=== PATIENT | female | born 1940 | race Caucasian/White ===

== ENCOUNTER 2016-05-15 16:32 | Emergency (ER) | payer OTHER ==
[~2016-05-15 16:32] MED LIST: ASCO10003 PO; ASPI81TA28 PO; DEXL60CA4 PO; GABA1CAP4 PO; LATA0.009 OPR; LDDP5 TD; LEVO100T7 PO; LISI-461 PO; PLV75 PO; SENN15TA PO; VENL37.593 PO; VLTG EXT; ZCR40 PO; ZINC1TAB PO; ZLF/50 PO
[2016-05-15 16:47] VITALS: TEMP 37; Ht 157.5 cm
[2016-05-15] MEDS ORDERED: MoRPHine SULFATE 2 MG/ML CARP IM STA (17:05)
--- NOTE | 2016-05-15 17:57 | DIAGNOSTIC IMAGING REPORT ---
RIGHT KNEE 3 VIEWS CLINICAL HISTORY: right knee pain Right pain COMPARISON: None. DISCUSSION: Generalized moderate degenerative change of all major joint compartments. Chondrocalcinosis. No significant joint effusion. Mild osteophytic reaction throughout. There is no evidence for soft tissue swelling. IMPRESSION: Moderate degenerative change all major joint compartments. Chondrocalcinosis. No acute bony abnormality. Electronically signed by: Cleveland Moseley M.D. 05/15/2016 5:56 PM Dictated Date/Time: 05/15/2016 5:55 PM
[2016-05-15] MEDS ORDERED: LATA0.009 OP (18:08)
[2016-05-15] MEDS ORDERED: CHOL500021 PO (18:08)
[2016-05-15] MEDS ORDERED: SYN50 PO (18:08)
[2016-05-15] MEDS ORDERED: MoRPHine SULFATE 4 MG/ML 1 ML CARP\\VIAL IM STA (18:23)
[2016-05-15] MEDS ORDERED: ONDA4TAB10 SL (18:26)
--- NOTE | 2016-05-15 18:27 | EMERGENCY ROOM VISIT NOTE ---
ED Visit Note First contact with patient: 16:56 CHIEF COMPLAINT: knee pain HISTORY OF PRESENT ILLNESS: This 75-year-old female patient presents to the emergency department in the right complaining of pain in the right knee. The patient reports that approximately 2 weeks ago, she kneeled on a hard surface when she was cleaning and developed knee pain afterward. She states that something similar happened a few years ago and she had relief with an injection into the knee. The patient reports that she has seen her orthopedic provider and had an injection with no improvement. She reports the pain has been gradually worsening. She was prescribed Mcdonough for the pain but states she has not been able to take it due to nausea. She does admit that she took the Mcdonough on an empty stomach. She has also been using ice and taking Tylenol for the pain without relief. She reports difficulty standing on the knee and does not use a walker due to carpal tunnel in the wrists. She states that she was seen by orthopedics today and was given a prescription for tramadol, which she has not yet filled. She denies any numbness, weakness, fevers or warmth. REVIEW OF SYSTEMS: A 6 system review of systems was completed with positives and pertinent negatives listed in the HPI. ALLERGIES: Prednisone MEDICATIONS: See med list PMH: Hypertension, hyperlipidemia, arthritis, carpal tunnel SOCIAL HISTORY: The patient lives locally with family. PHYSICAL EXAM: Vital Signs: Reviewed Nurse's notes, vital signs stable. GENERAL : This is a 75-year-old female, no acute distress, but appears in pain, well- developed, well-nourished. MENTAL STATUS: Alert, oriented to person place and time, and cooperative. MUSCULOSKELETAL: The right knee is not swollen. There is no ecchymosis. There is no joint effusion present. The patient is tender over the medial aspect of the knee, just below the patella. There is no joint line tenderness. The patella does not subluxate. Range of motion is full, but painful. Ligamentous examination is limited due to patient discomfort. The foot and toes are warm and well-perfused. Dorsalis pedis pulse 2+. Sensation to pain and light touch is intact. Capillary refill less than 2 seconds. RADIOGRAPHIC FINDINGS: RIGHT KNEE 3 VIEWS CLINICAL HISTORY: right knee pain Right pain COMPARISON: None. DISCUSSION: Generalized moderate degenerative change of all major joint compartments. Chondrocalcinosis. No significant joint effusion. Mild osteophytic reaction throughout. There is no evidence for soft tissue swelling. IMPRESSION: Moderate degenerative change all major joint compartments. Chondrocalcinosis. No acute bony abnormality. EMERGENCY DEPARTMENT COURSE: I examined the patient. X-rays of the right knee were reviewed by myself and read by radiology and reveal fractures. The patient already has an established orthopedic provider. She has seen them 2 for this complaint. I did offer the patient a prescription for Zofran to take with her pain medication. I did recommend the patient have close follow-up with orthopedics regarding this problem. Conservative measures were discussed with the patient. She will return for any worsening symptoms. She verbalized understanding of my assessment and treatment plan. The patient was discharged home in good condition. The patient was independently evaluated by Dr. Alaniz, ED attending physician , who agreed with my assessment and treatment plan. DIAGNOSIS: Right knee pain Problem List Medical Problems: (1) GERD (gastroesophageal reflux disease) Status: Chronic (2) Hypertension Status: Chronic (3) Hypothyroidism Status: Chronic (4) TIA (transient ischemic attack) Status: Resolved Surgical Problems: (1) Status post cholecystectomy Status: Resolved (2) Status post hysterectomy Status: Resolved (3) Status post lumbar surgery Status: Resolved (4) Status post total knee replacement Status: Resolved Current/Historical Medications Scheduled Ascorbic Acid (Vitamin C), 1,000 MG PO QAM Aspirin (Aspirin Ec), 81 MG PO HS Cholecalciferol (Vitamin D3), 5,000 UNIT PO QAM Clopidogrel Bisulfate (Clopidogrel), 75 MG PO QAM Dexlansoprazole (Dexilant), 60 MG PO QAM Gabapentin (Gabapentin), 300 MG PO BID Latanoprost (Xalatan 0.005% Oph Kitty), 1 DROPS OP HS Levothyroxine Sodium (Synthroid), 50 MCG PO QAM Lisinopril (Lisinopril), 10 MG PO QAM Ondasetron Odt (Zofran Odt), 4 MG SL Q6H Sennosides (Perdiem Overnight Relief), 30 MG PO HS Sertraline HCl (Sertraline HCl), 50 MG PO HS Simvastatin (Simvastatin), 40 MG PO HS Venlafaxine Hcl (Venlafaxine Extended Rel), 37.5 MG PO QAM Scheduled PRN Diclofenac Sod (Voltaren), 1 APPLN EXT QID PRN for right knee pain Allergies Coded Allergies: Prednisone (Verified Adverse Reaction, Intermediate, confusion,anxiety, ) Vital Signs Date Time Temp Pulse Resp B/P Pulse Ox O2 Delivery O2 Flow Rate FiO2 05/15/16 19:15 69 18 158/77 94 Room Air 05/15/16 16:47 37.0 80 20 129/90 95 Room Air Medications Administered Medications (Trade) Dose Ordered Sig/Leilani Route Start Time Stop Time Status Last Admin Dose Admin Morphine Sulfate (MoRPHine SULFATE INJ) 2 mg NOW STAT IM 05/15/16 17:05 05/15/16 17:07 DC 05/15/16 17:18 2 MG Morphine Sulfate (MoRPHine SULFATE INJ) 4 mg NOW STAT IM 05/15/16 18:23 05/15/16 18:25 DC 05/15/16 18:45 4 MG Departure Information Impression Primary Impression: Right knee pain Dispostion Home / Self-Care Condition GOOD Prescriptions Ondasetron Odt (ZOFRAN ODT) 4 Mg Tab 4 MG SL Q6H for Nausea, #15 TAB Prov: Michelle Tong .BRIDGER 05/15/16 Referrals Robbin Moss D.O. (PCP) Patient Instructions My [facility] Additional Instructions You have been treated in the Emergency Department for Knee Pain. Follow-up with orthopedics tomorrow as scheduled. For pain control, you can use the following [id number] medicines (if >12 yo): You have been prescribed Zofran to be used for any nausea or vomiting. Take as prescribed. Elevate the knee as needed for pain and swelling. Return to the Emergency Department if your current symptoms worsen despite treatment course outlined above. Problem Qualifiers Primary Impression: Right knee pain Chronicity: acute Qualified Codes: M25.561 - Pain in right knee
[2016-05-15 19:15] VITALS: BP 158/77; PULSE 69; O2SAT 94
--- NOTE | 2016-05-16 00:27 | EMERGENCY ROOM VISIT NOTE ---
ED Visit Note First contact with patient: 16:56 I have personally evaluated and examined this patient. I agree with assessment and plan of Michelle Tong PA-C. 75 yr old female with right knee pain which is chronic and followed by Ortho though worsening pain since injection a few days ago. No evidence of septic joint at this time nor DVT. She has follow up tomorrow with ortho as it is. Discussed symptoms requiring RTED.
== END 2016-05-15 19:22 | disposition home or self-care (01) ==
LOC: C.EDB 16:34 → C.EDD 19:22
DX: M25.561 Pain in right knee (principal); K21.9 Gastro-esophageal reflux disease without esophagitis; I10 Essential (primary) hypertension; E03.9 Hypothyroidism, unspecified; E78.5 Hyperlipidemia, unspecified; M19.90 Unspecified osteoarthritis, unspecified site; Z86.73 Personal history of transient ischemic attack (TIA), and cerebral infarction without residual deficits; Z79.82 Long term (current) use of aspirin; Z79.899 Other long term (current) drug therapy

== ENCOUNTER → 2016-05-22 | Outpatient (CLI) | payer OTHER ==
[~2016-05-22] MED LIST changes: +CHOL500021 PO; +LATA0.009 OP; -LATA0.009 OPR; -LDDP5 TD; -LEVO100T7 PO; +ONDA4TAB10 SL; +SYN50 PO; -ZINC1TAB PO
== END | disposition home or self-care (01) ==
LOC: C.CPL 14:40
DX: Z01.810 Encounter for preprocedural cardiovascular examination (principal)

== ENCOUNTER 2025-01-04 12:52 | Inpatient (IN) ==
[2025-01-04 14:24] LABS: Chlamydia pneumoniae PCR Not Detected (NotDetected); Coronavirus 229E PCR Not Detected (NotDetected); Coronavirus CoV-2 (COVID19)PCR Not Detected (NotDetected); Coronavirus HKU1 PCR Not Detected (NotDetected); Coronavirus NL63 PCR Not Detected (NotDetected); Coronavirus OC43PCR Not Detected (NotDetected); Human Metapneumovirus PCR Not Detected (NotDetected); Parainfluenza Virus 1 PCR Not Detected (NotDetected); Parainfluenza Virus 2 PCR DETECTED (NotDetected); Parainfluenza Virus 3 PCR Not Detected (NotDetected); Parainfluenza Virus 4 PCR Not Detected (NotDetected); Respiratory Syncytial VirusPCR Not Detected (NotDetected); Rhinovirus/Enterovirus PCR Not Detected (NotDetected)
[2025-01-04 15:07] LABS: Hematocrit (blood only) 37.0 % (37.0-47.0); Hemoglobin 12.3 g/dL (12.0-16.0); Immature Granulocytes # (auto) 0.02 K/uL (0.01-0.20); Immature Granulocytes % (auto) 0.4 %; Mean Corpuscular Hemoglobin 30.7 pg (25.0-34.0); Mean Corpuscular Volume 92.3 fL (80.0-100.0); Platelet Count 184 K/uL (130-400); RDW Standard Deviation 43.8 fL (36.4-46.3); Red Blood Count 4.01 M/uL (4.20-5.40); White Blood Count 5.25 K/ul (4.8-10.8)
--- NOTE | 2025-01-04 15:10 | XRay Report ---
Chest radiograph, one view History: Dyspnea. Comparison: January 27, 2019. Findings: Calcified atherosclerotic changes of the thoracic aorta. Probably fine left diaphragm and bilateral costophrenic angles. Difficulty appreciating significant interval change. Lung volume slightly decreased. Mild bronchovascular crowding. Pulmonary vasculature is within normal limits. Lungs are otherwise clear. Impression: Difficult appreciating significant interval change with suspected mild bibasilar subsegmental atelectasis and questionable small effusions versus costophrenic angle scarring. Consider lateral view. Electronically signed by Jg Tobar 01-04-2025 3:10 PM
[2025-01-04 15:25] LABS: Alanine Aminotransferase 15.0 U/L (7-52); Albumin Globulin Ratio 1.4 (0.9-2); Albumin Level 4.0 gm/dl (3.4-5.0); Alkaline Phosphatase 108.0 U/L (34-104); Anion Gap 9.0 (3-11); Bilirubin,Total 0.4 mg/dl (0.2-1.0); Blood Urea Nitrogen 12.0 mg/dl (6-23); Calcium 9.5 mg/dl (8.6-10.3); Carbon Dioxide 24.0 mmol/L (21-32); Chloride 107.0 mmol/L (98-107); Creatinine Clr Calc Pharmacy 46.9 ml/min; Globulin 2.9 gm/dl (2.5-4.0); Glucose 81.0 mg/dl (70-99(Fasting)); Potassium 4.6 mmol/L (3.5-5.1); Sodium 140.0 mmol/L (136-145); Total Protein 6.9 gm/dl (6.0-8.3)
--- NOTE | 2025-01-04 16:15 | Emergency Department Note ---
Impression & Plan Upper respiratory infection, Acute hypoxic respiratory failure ED Provider Note NAME: ANNAMARIA BRADLEY AGE: 84 SEX: F : 1940 ARRIVES VIA: Walk-In INFORMANT: Patient, ED PROVIDER(S): Carissa Miramontes MD CHIEF COMPLAINT: Cough, congestion, chills HPI: This is an 84-year-old female with a cough, congestion. Patient notes that she is feeling ill when she has a flu/cold. She is having difficulty with breathing. She reports chest pressure, nonproductive cough. She reports trouble breathing and shortness of breath. She reports significant voice change. She reports taking Mucinex without relief. She walks with a walker is having difficulty at home. ROS: See above HPI for pertinent positives & negatives. A total of 10 systems reviewed and were otherwise negative. PAST MEDICAL HISTORY: See Below PAST SURGICAL HISTORY: See Below FAMILY HISTORY: See Below SOCIAL HISTORY: See Below HOME MEDICATIONS: See Below ALLERGIES: See Below VITALS: See Below PHYSICAL EXAMINATION: General: resting comfortably in no acute distress Head: Normocephalic and atraumatic Eyes: Normal inspection, extraocular muscles intact Ear, nose, throat: Normal external exam Neck: Normal range of motion Respiratory: Rhonchi at the bases, conversational dyspnea Cardiovascular: Regular rate/rhythm, no murmur GI: soft, nontender, no guarding or rebound Extremities: nontender, moves all extremities Neuro: The patient awake and alert, appropriately conversive, no focal deficits, symmetric faces Skin: Warm, dry, and intact MEDICAL DECISION MAKING: This is a an 84-year-old female presenting for cough, congestion. She denies conversational dyspnea. She has prodrome of URI type symptoms. Concern for pneumonia clinically. Not consistent with sepsis however. - Bloodwork is reviewed showing no significant leukocytosis, anemia, electrolyte or creatinine abnormality - She is positive for parainfluenza - Chest x-ray reveals possible scarring/atelectasis. - Patient has having intermittent desaturations. Upon ambulation, she feels lightheaded, dizzy and hypoxic to 89%. - Due to significant conversational dyspnea, desaturation, difficulty ambulating, will need to the hospital service at this time Differential diagnosis: Pneumonia, URI, deconditioning, hypoxia, hypoxic respiratory failure Independent History obtained from: [facility] interpreted by me: ECG: ECG independently interpreted by me with normal sinus rhythm, rate of 71, normal MI, normal QRS, prolonged QT, no ST segment elevations consistent with STEMI criteria Cardiac Monitoring: An order was placed for continuous cardiac monitoring. The monitor shows a rate of 69 with sinus rhythm. Past Med/Surg History Problem List (Updated 01/06/25 @ 00:25 by Carissa Miramontes MD) Acute hypoxic respiratory failure (Acute) Upper respiratory infection (Acute) Overactive adrenal gland Parainfluenza Overactive bladder Fibromyalgia Anxiety Rheumatoid arthritis ILD (interstitial lung disease) follows w/ [facility] pulmon-- Osteoporosis Right carpal tunnel syndrome Right knee DJD Lumbar back pain with radiculopathy affecting right lower extremity (Acute) GERD (gastroesophageal reflux disease) (Chronic) Hypothyroidism (Chronic) Hypertension (Chronic) Medical History (Updated 01/06/25 @ 00:25 by Carissa Miramontes MD) Rotator cuff rupture (03/13/13) Pes anserinus tendonitis of right lower extremity Hx of compression fracture of spine fall summer 2023 - followed w/ neuro at [facility] Hx-TIA (transient ischemic attack) ~2013- no longer on blood thinners Surgical History (Updated 12/04/24 @ 21:43 by Carlos Alberto Canales DO) Hx of cardiac catheterization possibly, unsure; no stents placed - states was done to check vesels because of lung disease, [facility] ~2020 Hx of cataract extraction bilat History of lumbar surgery Hx of hysterectomy Hx of cholecystectomy Status post total knee replacement left History of esophagogastroduodenoscopy (EGD) Hx of colonoscopy Hx of repair of right rotator cuff Family History (Updated 12/04/24 @ 13:19 by Dinorah Rosales LPN) Grandmother (Maternal) Breast cancer Other Family history non-contributory Denies family history of Ovarian cancer Prostate cancer Myocardial infarction Colorectal cancer Social History (Updated 12/04/24 @ 13:20 by Dinorah Rosales LPN) Smoking Status: Never smoker Second Hand Exposure: No; Hx Alcohol Use: Yes Alcohol type: hard liquor Hx Substance Use: No Preferred Language: Kazakh Communication Ability: Effective Visual Impairment: No Limitations Hearing Ability: Normal Reproduction Machine Loader Required: No Beliefs That Will Affect Care: None marital status: Current Living Situation: Spouse current occupational status: retired How many Children do You have: 4 Feels Safe at Home: Yes Safety Concerns: Feels Safe At This Time Childhood Exposure to Second-Hand Smoke: No Diet: regular caffeine: Yes during the past year weight has: remained stable Dental Care, Regularly: Yes Physical Activity Frequency: Does not Exercise Seatbelt Use: always Sunscreen Use: Yes Assistive Devices: Glasses and Walker Allergies Allergies Allergy/AdvReac Type Severity Reaction Status Date / Time prednisone AdvReac Intermediate confusion,a Verified 01/04/25 16:33 nxiety Home Meds Home Medications Medication Instructions Recorded Confirmed venlafaxine 150 mg 150 mg PO DAILY 12/03/24 01/04/25 capsule,extended release 24 hr aspirin 81 mg tablet 81 mg PO DAILY 12/04/24 01/04/25 dexlansoprazole 60 mg 60 mg PO DAILY 12/04/24 01/04/25 capsule,biphase delayed release gabapentin 300 mg capsule 300 mg PO DAILY 12/04/24 01/04/25 hydroxychloroquine 200 mg tablet 200 mg PO DAILY 12/04/24 01/04/25 hydroxyzine HCl 25 mg tablet 25 mg PO BID PRN Anxiety 12/04/24 01/04/25 latanoprost 0.005 % eye drops 1 drp OPB HS 12/04/24 01/04/25 metoprolol succinate 50 mg 50 mg PO DAILY 12/04/24 01/04/25 tablet,extended release 24 hr mirabegron 50 mg tablet,extended 50 mg PO DAILY 12/04/24 01/04/25 release 24 hr nystatin 100,000 unit/gram topical 1 applic topical BID PRN Skin 12/04/24 01/04/25 cream Irritation levothyroxine 88 mcg tablet 88 mcg PO DAILYBB 01/04/25 01/04/25 Previous Rx's Medication Instructions Recorded Wheeled Walker #1 ea 07/03/19 prednisone 20 mg tablet 40 mg (2 x 20 mg) PO DAILY 3 days 01/05/25 #6 tabs Results & Data (ED) Vital Signs Vital Signs - 24 hr 01/04/25 13:01 01/04/25 13:16 01/04/25 13:31 Temperature 36.4 C L Temperature Source Oral Pulse Rate 79 71 Pulse Rate [Apical] 74 Pulse Rhythm [Apical] Regular Pulse Strength [Apical] Normal Respiratory Rate 18 19 Respiratory Effort / Characteristics Non-Labored Spontaneous Non-Labored Spontaneous Respiratory Depth Normal Normal Respiratory Pattern Regular Regular Blood Pressure 153/79 H Blood Pressure [Right Arm] 184/80 H Blood Pressure Mean 103 Blood Pressure Mean [Right Arm] 114 Blood Pressure Position [Right Arm] Lying Pulse Oximetry 97 98 Pulse Oximetry [Exercises] Oxygen Delivery Method Room Air Room Air Sepsis Recent Fever Within 48 Hours No Sepsis New/Unexplained Change in Mental Status N/A Sepsis Action Taken by Nursing No Action Required 01/04/25 14:47 01/04/25 15:12 01/04/25 15:54 Temperature 37.0 C Temperature Source Oral Pulse Rate 68 Pulse Rate [Apical] 68 Pulse Rhythm [Apical] Pulse Strength [Apical] Respiratory Rate 23 21 Respiratory Effort / Characteristics Non-Labored Respiratory Depth Normal Respiratory Pattern Blood Pressure 166/86 H Blood Pressure [Right Arm] 151/80 H Blood Pressure Mean 112 Blood Pressure Mean [Right Arm] 103 Blood Pressure Position [Right Arm] Pulse Oximetry 89 L 97 Pulse Oximetry [Exercises] 89 L Oxygen Delivery Method Room Air Room Air Room Air Sepsis Recent Fever Within 48 Hours Sepsis New/Unexplained Change in Mental Status Sepsis Action Taken by Nursing Laboratory Data 01/05/25 06:57 01/05/25 06:57 Lab Results 01/04/25 01/04/25 Range/Units 13:25 14:43 WBC 5.25 (4.8-10.8) K/ul RBC 4.01 L (4.20-5.40) M/uL Hgb 12.3 (12.0-16.0) g/dL Hct 37.0 (37.0-47.0) % MCV 92.3 (80.0-100.0) fL MCH 30.7 (25.0-34.0) pg MCHC 33.2 (32.0-36.0) g/dL RDW Std Deviation 43.8 (36.4-46.3) fL RDW Coeff of James 13.0 (11.5-14.5) % Plt Count 184 (130-400) K/uL MPV 9.4 (9.4-12.4) fL Immature Gran % (Auto) 0.4 % Neut % (Auto) 46.6 % Lymph % (Auto) 33.9 % Shasta % (Auto) 10.9 % Eos % (Auto) 7.6 % Baso % (Auto) 0.6 % Neut # (Auto) 2.45 (1.40-6.50) K/uL Lymph # (Auto) 1.78 (1.20-3.40) K/uL Shasta # (Auto) 0.57 (0.11-0.59) K/uL Eos # (Auto) 0.40 (0.00-0.50) K/uL Baso # (Auto) 0.03 (0.00-0.20) K/uL Immature Gran # (Auto) 0.02 (0.01-0.20) K/uL Sodium 140 (136-145) mmol/L Potassium 4.6 (3.5-5.1) mmol/L Chloride 107 (98-107) mmol/L Carbon Dioxide 24 (21-32) mmol/L Anion Gap 9 (3-11) BUN 12 (6-23) mg/dl Creatinine 0.94 (0.6-1.2) mg/dl Est Cr Clr Drug Dosing 46.9 ml/min eGFR 59.83 BUN/Creatinine Ratio 12.8 (10-20) Glucose 81 (70-99(Fasting)) mg/dl Calcium 9.5 (8.6-10.3) mg/dl Total Bilirubin 0.4 (0.2-1.0) mg/dl AST 30 (13-39) U/L ALT 15 (7-52) U/L Alkaline Phosphatase 108 H (34-104) U/L Total Protein 6.9 (6.0-8.3) gm/dl Albumin 4.0 (3.4-5.0) gm/dl Globulin 2.9 (2.5-4.0) gm/dl Albumin/Globulin Ratio 1.4 (0.9-2) Adenovirus (PCR) Not Detected (NotDetected) B. pertussis DNA (PCR) Not Detected (NotDetected) B.parapertussis DNA PCR Not Detected (NotDetected) C. pneumoniae DNA (PCR) Not Detected (NotDetected) Coronavirus OC43 (PCR) Not Detected (NotDetected) Coronavirus HKU1 (PCR) Not Detected (NotDetected) Coronavirus 229E (PCR) Not Detected (NotDetected) SARS-CoV-2 (PCR) Not Detected (NotDetected) Coronavirus NL63 (PCR) Not Detected (NotDetected) Human Metapneumovir PCR Not Detected (NotDetected) Influenza Type A (PCR) Not Detected (NotDetected) Influenza Type B (PCR) Not Detected (NotDetected) M. pneumoniae (PCR) Not Detected (NotDetected) Parainfluenza 1 (PCR) Not Detected (NotDetected) Parainfluenza 2 (PCR) DETECTED A (NotDetected) Parainfluenza 3 (PCR) Not Detected (NotDetected) Parainfluenza 4 (PCR) Not Detected (NotDetected) RSV (PCR) Not Detected (NotDetected) Entero/Rhino (PCR) Not Detected (NotDetected) Administered Medications Discontinued Medications Albuterol (Albuterol 0.5% Neb Soln 2.5 Mg/0.5 Ml Vial) 2.5 mg NEB NOW STA; Protocol Stop: 01/04/25 16:02 Last Admin: 01/04/25 16:26 Dose: 2.5 mg Documented By: MMN Albuterol (Albuterol 0.5% Neb Soln 2.5 Mg/0.5 Ml Vial) 2.5 mg NEB Q4HWA [facility]; Protocol Stop: 02/03/25 19:59 Last Admin: 01/05/25 07:21 Dose: 2.5 mg Documented By: Admin: 01/04/25 20:06 Dose: 2.5 mg Documented By: EML Albuterol (Albuterol 0.5% Neb Soln 2.5 Mg/0.5 Ml Vial) 2.5 mg NEB Q4R [facility]; Protocol Stop: 02/04/25 10:59 Last Admin: 01/05/25 11:20 Dose: 2.5 mg Documented By: EAM Aspirin (Aspirin 81 Mg Ectab) 81 mg PO DAILY MAYRA Stop: 02/04/25 08:59 Last Admin: 01/05/25 08:15 Dose: 81 mg Documented By: TLM Enoxaparin Sodium (Enoxaparin Inj 40 Mg/0.4 Ml Syr) 40 mg SQ Q24H MAYRA Stop: 02/03/25 19:59 Last Admin: 01/04/25 19:36 Dose: Not Given Documented By: MRL Gabapentin (Gabapentin 300 Mg Cap) 300 mg PO DAILY MAYRA Stop: 02/04/25 08:59 Last Admin: 01/05/25 08:15 Dose: 300 mg Documented By: TERESO Guaifenesin (Guaifenesin 600 Mg Tabcr) 1,200 mg PO Q12 [facility] Stop: 02/03/25 20:59 Last Admin: 01/05/25 08:15 Dose: 1,200 mg Documented By: Admin: 01/04/25 19:37 Dose: 1,200 mg Documented By: [facility] Hydroxychloroquine Sulfate (Hydroxychloroquine Sulfate 200 Mg Tab) 200 mg PO DAILY [facility]RA Stop: 02/04/25 08:59 Last Admin: 01/05/25 08:15 Dose: 200 mg Documented By: TERESO Sodium Chloride (Nss) 1,000 mls @ 80 mls/hr IV .[id number] [facility]RA Stop: 01/07/25 18:47 Last Admin: 01/05/25 08:15 Dose: 80 mls/hr Documented By: Infusion: 01/05/25 08:06 Dose: Infused Documented By: Admin: 01/04/25 19:36 Dose: 80 mls/hr Documented By: [facility] Methylprednisolone 40 mg/ (Syringe) 0.64 mls @ 1.5 mls/min IV Q8H MAYRA Stop: 02/03/25 19:14 Last Admin: 01/05/25 11:30 Dose: 1.5 mls/min Documented By: Admin: 01/05/25 03:48 Dose: 1.5 mls/min Documented By: [facility] Admin: 01/04/25 19:36 Dose: 1.5 mls/min Documented By: [facility] Latanoprost (Latanoprost 0.005% Op Soln 2.5 Ml Btl) 1 drops OPB HS [facility] Stop: 02/03/25 20:59 Last Admin: 01/04/25 19:37 Dose: 1 drops Documented By: [facility] Levothyroxine Sodium (Levothyroxine Sodium 88 Mcg Tablet) 88 mcg PO DAILYBB [facility] Stop: 02/04/25 06:29 Last Admin: 01/05/25 06:01 Dose: 88 mcg Documented By: [facility] Metoprolol Succinate (Metoprolol Succ 50mg Ext Rel Tab) 50 mg PO DAILY [facility]RA Stop: 02/04/25 08:59 Last Admin: 01/05/25 08:15 Dose: 50 mg Documented By: TLM Pantoprazole Sodium (Pantoprazole 40 Mg Tab) 40 mg PO DAILY [facility]RA Stop: 02/04/25 08:59 Last Admin: 01/05/25 08:15 Dose: 40 mg Documented By: TLM Venlafaxine HCl (Venlafaxine Hcl Xr 150 Mg Capxr) 150 mg PO DAILY [facility]RA Stop: 02/04/25 08:59 Last Admin: 01/05/25 08:15 Dose: 150 mg Documented By: TLM Vibegron (Vibegron 75 Mg Tab) 75 mg PO DAILY MAYRA Stop: 02/04/25 08:59 Last Admin: 01/05/25 08:15 Dose: 75 mg Documented By: TLM Imaging Data Radiologist's Impression: Chest X-Ray 01/04/25 14:45 Chest radiograph, one view History: Dyspnea. Comparison: January 27, 2019. Findings: Calcified atherosclerotic changes of the thoracic aorta. Probably fine left diaphragm and bilateral costophrenic angles. Difficulty appreciating significant interval change. Lung volume slightly decreased. Mild bronchovascular crowding. Pulmonary vasculature is within normal limits. Lungs are otherwise clear. Impression: Difficult appreciating significant interval change with suspected mild bibasilar subsegmental atelectasis and questionable small effusions versus costophrenic angle scarring. Consider lateral view. Electronically signed by Jg Tobar 01-04-2025 3:10 PM Discharge Plan Visit Data Chief Complaint: Congestion Stated Complaint: CONGESTION AND COUGHING BADLY ED Provider: Carissa Miramontes Discharge Problem: Upper respiratory infection, Acute hypoxic respiratory failure Patient Disposition: Admitted As Inpatient Condition: Fair Discharge Instructions Interventions: ED Discharge Assessment Last Done: 01/04/25 18:25
[2025-01-04] MEDS: ALBUTEROL 0.5% NEB SOLN 2.5 MG/0.5 ML VIAL NEB STA (16:26)
--- NOTE | 2025-01-04 16:26 | History & Physical Report ---
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 -UA w/ reflex #Overactive Bladder - no acute concerns; Continue Mirabegron #GERD - no acute concerns; Continue dexlansoprazole #CAD - no acute concerns; Continue ASA #HTN - no acute concerns; Continue Metoprolol #Hypothyroidism - no acute concerns; Continue Levothyroxine #Anxiety - no acute concerns; Continue Venlafaxine, Hydroxyzine prn #Rheumatoid Arthritis - no acute concerns; Continue Hydroxychloroquine #Fibromyalgia - no acute concerns ; Continue Gabapentin #Ambulatory dysfunction - ambulates with walker at home -PT/OT eval and treat Dispo: Admit Med/Tele VTE Proph: Lovenox Sq History of Present Illness Chief Complaint: Worsening SOB, cough, and myalgias Primary Care Provider: Carlos Alberto Canales, DO 84 y/o F with a PMHx of interstitial lung disease, overactive bladder, GERD, CAD, HTN, Hypothyroidism, Anxiety, Rheumatoid Arthritis, and Fibromyalgia presents c/o worsening 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 Pt states that while she was at home, she noticed that she was more SOB than usual. Pt states that over the next few days, it became progressively more difficult for her to breathe. 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 Pt notes she developed a cough, congestion, and chills as well. Pt states that the cough was initially dry in nature and appears wet today. Pt states that she took Mucinex before with good relief. Pt additionally admits to fatigue, "feeling feverish", sore throat, wheezing, myalgias, R ear pain, and loss of appetite. Pt denies changes in hearing/vision, palpitations, abd pain/discomfort, N/V/D, and dysuria. 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 Pt was transported to the ED via a friend. While in the ED, the patient received Biofire that was positive for Parainfluenza 2. She additionally had a CXR with suspected small effusions vs atelectasis vs scarring. Pt does have a history of interstitial lung disease and notes that she used to be on a daily steroid for it. Pt is being admitted for further evaluation and care. Allergies Allergy/AdvReac Type Severity Reaction Status Date / Time prednisone AdvReac Intermediate confusion,a Verified 01/04/25 16:33 nxiety Home Medications Medication Instructions Recorded Confirmed Type Wheeled Walker #1 ea 07/03/19 12/04/24 Rx venlafaxine 150 mg 150 mg PO DAILY 12/03/24 01/04/25 History capsule,extended release 24 hr aspirin 81 mg tablet 81 mg PO DAILY 12/04/24 01/04/25 History dexlansoprazole 60 mg 60 mg PO DAILY 12/04/24 01/04/25 History capsule,biphase delayed release gabapentin 300 mg capsule 300 mg PO DAILY 12/04/24 01/04/25 History hydroxychloroquine 200 mg tablet 200 mg PO DAILY 12/04/24 01/04/25 History hydroxyzine HCl 25 mg tablet 25 mg PO BID PRN Anxiety 12/04/24 01/04/25 History latanoprost 0.005 % eye drops 1 drp OPB HS 12/04/24 01/04/25 History metoprolol succinate 50 mg 50 mg PO DAILY 12/04/24 01/04/25 History tablet,extended release 24 hr mirabegron 50 mg tablet,extended 50 mg PO DAILY 12/04/24 01/04/25 History release 24 hr nystatin 100,000 unit/gram topical 1 applic topical BID PRN Skin 12/04/24 01/04/25 History cream Irritation levothyroxine 88 mcg tablet 88 mcg PO DAILYBB 01/04/25 01/04/25 History Past Med/Surg History Problem List (Updated 01/04/25 @ 18:54 by Brooke Barnes PA-C) Overactive adrenal gland Parainfluenza Overactive bladder Fibromyalgia Anxiety Rheumatoid arthritis ILD (interstitial lung disease) [facility] Osteoporosis Right carpal tunnel syndrome Right knee DJD Lumbar back pain with radiculopathy affecting right lower extremity (Acute) GERD (gastroesophageal reflux disease) (Chronic) Hypothyroidism (Chronic) Hypertension (Chronic) Medical History (Updated 01/04/25 @ 18:54 by Brooke Barnes PA-C) Rotator cuff rupture (03/13/13) Pes anserinus tendonitis of right lower extremity Hx of compression fracture of spine fall summer 2023 - followed w/ neuro at [facility] Hx-TIA (transient ischemic attack) ~2013- no longer on blood thinners Surgical History (Updated 12/04/24 @ 21:43 by Carlos Alberto Canales DO) Hx of cardiac catheterization possibly, unsure; no stents placed - states was done to check vesels because of lung disease, [facility] ~2020 Hx of cataract extraction bilat History of lumbar surgery Hx of hysterectomy Hx of cholecystectomy Status post total knee replacement left History of esophagogastroduodenoscopy (EGD) Hx of colonoscopy Hx of repair of right rotator cuff Family History (Updated 12/04/24 @ 13:19 by Dinorah Rosales LPN) Grandmother (Maternal) Breast cancer Other Family history non-contributory Denies family history of Ovarian cancer Prostate cancer Myocardial infarction Colorectal cancer Social History (Updated 12/04/24 @ 13:20 by Dinorah Rosales LPN) Smoking Status: Never smoker Second Hand Exposure: No; Hx Alcohol Use: No Hx Substance Use: No Preferred Language: Slovak Communication Ability: Effective Visual Impairment: No Limitations Hearing Ability: Normal Scenery Builder Required: No Beliefs That Will Affect Care: None marital status: Current Living Situation: Spouse current occupational status: retired How many Children do You have: 4 Feels Safe at Home: Yes Childhood Exposure to Second-Hand Smoke: No Diet: regular caffeine: Yes during the past year weight has: remained stable Dental Care, Regularly: Yes Physical Activity Frequency: Does not Exercise Seatbelt Use: always Sunscreen Use: Yes Assistive Devices: Cane, Denture - Upper and Walker Review of Systems Review of Systems: All systems reviewed & are unremarkable except as noted in Subjective Physical Exam Physical Exam: General: Pt is a 84 y/o obese F SOB in bed. VS: reviewed - remarkable Skin: Warm and dry; no lesions or ulcerations ENT: Sinuses are nontender to percussion; Nares are patent w/ some crusted mucous; Throat is mildly erythematous w/ PND, uvula midline; TM's not directly visualized, wax plugs present in bilat ear canals, no pain w/ Pinna tugging. Respiratory: Diffuse expiratory wheezes heard bilat; Pt w/ wet sounding cough; Chest expansion is full and symmetrical Cardio: RRR no murmurs Abdomen: Round, normoactive BS x4, nontender to palpation MSK: FROM of extremities, no deformities; uses walker to ambulate Extremities: no Neuro: A&Ox4, cooperative Results & Data Results & Data Vital Signs (Past 12 Hours) Vital Signs Temp Pulse Pulse Resp BP BP Pulse Ox 01/04/25 15:54 01/04/25 15:42 72 16 156/68 H 95 01/04/25 15:12 68 21 166/86 H 97 01/04/25 14:47 98.6 F 68 23 151/80 H 89 L 01/04/25 13:31 71 01/04/25 13:16 74 19 184/80 H 98 01/04/25 13:01 97.5 F L 79 18 153/79 H 97 Pulse Ox O2 Del Method 01/04/25 15:54 89 L Room Air 01/04/25 15:42 Room Air 01/04/25 15:12 Room Air 01/04/25 14:47 Room Air 01/04/25 13:31 01/04/25 13:16 Room Air 01/04/25 13:01 Room Air Laboratory Results Reviewed: CBC, CMP, Biofire Diagnostic Findings Revewed: CXR - most likely scarring secondary to interstitial lung disease PG Care Time/CCT Total # of Minutes Spent Total Time Spent with Patient: Total time spent is greater than 50% in coordination of care (as documented) at patient's floor/unit and/or counseling patient: Coding Level of Care Code 88786 INT INP/OBS CARE MIN Diagnoses Parainfluenza B34.8 ILD (interstitial lung disease) J84.9 Overactive bladder N32.81 GERD (gastroesophageal reflux disease) K21.9
[2025-01-04] MEDS ORDERED: NON-FORMULARY MEDICATION (Wheeled Walker misc) SCH (18:48)
[2025-01-04] MEDS ORDERED: ONDANSETRON INJ 2 MG/ML 2 ML VIAL IV PRN (18:48)
[2025-01-04] MEDS ORDERED: MELATONIN 3 MG TAB PO PRN (18:48)
[2025-01-04] MEDS ORDERED: POLYETHYLENE (MIRALAX) 17 GM PACK PO PRN (18:48)
[2025-01-04] MEDS ORDERED: ALBUTEROL HFA 8 GM INHALER INH PRN (18:48)
[2025-01-04] MEDS ORDERED: NYSTATIN CR 15 GM TUBE EXT PRN (18:48)
[2025-01-04] MEDS ORDERED: ACETAMINOPHEN 325 MG TAB PO PRN (18:48)
[2025-01-04] MEDS: ENOXAPARIN INJ 40 MG/0.4 ML SYR SQ SCH (19:36)
[2025-01-04] MEDS: SODIUM CHLORIDE 0.9% 1,000 ML IV SCH (19:36)
[2025-01-04] MEDS: guaiFENesin 600 MG TABCR PO SCH (19:37)
[2025-01-04] MEDS: LATANOPROST 0.005% OP SOLN 2.5 ML BTL OPB SCH (19:37)
[2025-01-04] MEDS: ALBUTEROL 0.5% NEB SOLN 2.5 MG/0.5 ML VIAL NEB SCH (20:06)
--- NOTE | 2025-01-04 21:30 | Electrocardiogram Report ---
Test Reason : Blood Pressure : */* mmHG Vent. Rate : 71 BPM Atrial Rate : 71 BPM P-R Int : 182 ms QRS Dur : 98 ms QT Int : 446 ms P-R-T Axes : 46 -45 31 degrees QTcB Int : 484 ms Normal sinus rhythm Left anterior fascicular block Moderate voltage criteria for LVH, may be normal variant ( R in aVL , Wagner product ) Poor R wave progression, consider anterior RI vs. lead placement vs. LVH Nonspecific T wave abnormality Prolonged QT Abnormal ECG When compared with ECG of 27-Jan-2019 14:35, Questionable change in initial forces of Anterolateral leads Confirmed by Lane Sheffield ([id number]) on 01/04/2025 9:30:43 PM Referred By: Confirmed By: Lane Sheffield
[2025-01-04 22:57] LABS: Appearance Urine Clear (Clear); Bacteria Urine Automated 1+ (None Seen); Cast Urine Automated 0-2 /lpf (0-2); Glucose Urine UA Negative (Negative); RBC Urine Automated 0-2 /hpf (0-2); WBC Urine Automated 0-5 /hpf (0-5)
[2025-01-05] MEDS: LEVOTHYROXINE SODIUM 88 MCG TABLET PO SCH (06:01)
[2025-01-05 07:33] LABS: Hematocrit (blood only) 33.9 % (37.0-47.0); Hemoglobin 11.4 g/dL (12.0-16.0); Immature Granulocytes # (auto) 0.03 K/uL (0.01-0.20); Immature Granulocytes % (auto) 0.6 %; Mean Corpuscular Hemoglobin 31.2 pg (25.0-34.0); Mean Corpuscular Volume 92.9 fL (80.0-100.0); Platelet Count 174 K/uL (130-400); RDW Standard Deviation 43.3 fL (36.4-46.3); Red Blood Count 3.65 M/uL (4.20-5.40); White Blood Count 4.64 K/ul (4.8-10.8)
[2025-01-05 07:34] VITALS: RESP 16
[2025-01-05 07:50] LABS: Anion Gap 6 (3-11); Blood Urea Nitrogen 13 mg/dl (6-23); Calcium 9.4 mg/dl (8.6-10.3); Carbon Dioxide 26 mmol/L (21-32); Chloride 108 mmol/L (98-107); Creatinine Clr Calc Pharmacy 49.5 ml/min; Glucose 147 mg/dl (70-99(Fasting)); Potassium 4.8 mmol/L (3.5-5.1); Sodium 140 mmol/L (136-145)
[2025-01-05] MEDS: ASPIRIN 81 MG ECTAB PO SCH (08:15)
[2025-01-05] MEDS: VENLAFAXINE HCL XR 150 MG CAPXR PO SCH (08:15)
[2025-01-05] MEDS: HYDROXYCHLOROQUINE SULFATE 200 MG TAB PO SCH (08:15)
[2025-01-05] MEDS: METOPROLOL SUCC 50MG EXT REL TAB PO SCH (08:15)
[2025-01-05] MEDS: GABAPENTIN 300 MG CAP PO SCH (08:15)
[2025-01-05] MEDS: VIBEGRON 75 MG TAB PO SCH (08:15)
[2025-01-05 11:18] VITALS: BP 174/83; TEMP 97.7
[2025-01-05] MEDS: ALBUTEROL 0.5% NEB SOLN 2.5 MG/0.5 ML VIAL NEB SCH (11:20)
[2025-01-05 11:21] VITALS: PULSE 69; O2SAT 95
--- NOTE | 2025-01-05 13:04 | Discharge Summary ---
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 She tested positive for Parainfluenza on arrival and was hypoxic at 89% on room air. She was admitted for management of such. #Parainfluenza | Hypoxia - Biofire + Parainfluenza 2; CXR on 01/04 with suspected small effusions vs atelectasis vs scarring - Now stable on room air - CRP and procalcitonin negative - Received IV Solu-Medrol 40 mg Q8h while hospitalized - Discharged on prednisone 40 mg daily x 3 days #Ambulatory dysfunction - ambulates with walker at home - PT/OT recommended return home at discharge #Interstitial Lung Disease - pt not currently managed with home medications; no O2 at baseline. Follows with pulmonology annually outpatient #Overactive Bladder - UA negative on admission; Continue Mirabegron #GERD - no acute concerns; Continue dexlansoprazole #CAD - no acute concerns; Continue ASA #HTN - no acute concerns; Continue Metoprolol #Hypothyroidism - no acute concerns; Continue Levothyroxine #Anxiety - no acute concerns; Continue Venlafaxine, Hydroxyzine prn #Rheumatoid Arthritis - no acute concerns; Continue Hydroxychloroquine #Fibromyalgia - no acute concerns ; Continue Gabapentin VTE Proph: Lovenox Sq Dispo: Discharged home 01/05 Admission HPI Per Admitting Provider 84 y/o F with a PMHx of interstitial lung disease, overactive bladder, GERD, CAD, HTN, Hypothyroidism, Anxiety, Rheumatoid Arthritis, and Fibromyalgia presents c/o worsening SOB starting 5 days RN 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 Pt states that while she was at home, she noticed that she was more SOB than usual. Pt states that over the next few days, it became progressively more difficult for her to breathe. She notes that last 3 days RN FIRST ASSIST she has had to sit up while sleeping otherwise she is too short of breath. Pt notes she developed a cough, congestion, and chills as well. Pt states that the cough was initially dry in nature and appears wet today. Pt states that she took Mucinex before with good relief. Pt additionally admits to fatigue, "feeling feverish", sore throat, wheezing, myalgias, R ear pain, and loss of appetite. Pt denies changes in hearing/vision, palpitations, abd pain/discomfort, N/V/D, and dysuria. Pt also notes that 3 days RN FIRST ASSIST she noticed an increase in frequency and urgency with urination and has some lower abdominal discomfort. Pt was transported to the ED via a friend. While in the ED, the patient received Biofire that was positive for Parainfluenza 2. She additionally had a CXR with suspected small effusions vs atelectasis vs scarring. Pt does have a history of interstitial lung disease and notes that she used to be on a daily steroid for it. Pt is being admitted for further evaluation and care. Discharge Exam General: No acute distress, nondiaphoretic, well-developed, well-nourished. Skin: Warm, dry. No rashes or peripheral edema noted. Cardiac: Regular rate and rhythm without murmurs gallops or rubs. Pulm: Clear to auscultation bilaterally without wheezes, rales or rhonchi. Normal respiratory effort. 95% on room air. Abdominal: Soft, nontender, nondistended. Bowel sounds present. Neuro: A&O x3. No focal neurological deficits. Discharge Plan Discharge Items Patient Disposition: Home - Self-Care Reason For Visit: PARAINFLUENZA Discharge Diagnosis: Parainfluenza Activity: Resume your previous activity Non-emergency contact: Primary Care Provider Call non-emergency contact if: you have any medication questions and your sympto ms worsen Follow-up/Referrals: Carlos Alberto Canales DO [Primary Care Provider] - (Follow-up in 1-2 weeks) Diet: Heart Healthy Addtl Attending Provider Instructions: Marci, You were admitted to the hospital due to worsening shortness of breath and you are found to have parainfluenza. This is a respiratory virus. You were treated conservatively with IV steroids and breathing treatments. You have responded well to treatment and are medically stable to be discharged home. Upon discharge from the hospital: * Take prednisone (oral steroid) 40 mg x 3 days starting tomorrow 01/06. * Continue your other home medications as prescribed. * Follow-up with your PCP in 1-2 weeks. Please return to the hospital if you experience any of the following: New or worsening shortness of breath, difficulty breathing, chest pain, inability to tolerate oral intake, dizziness, passing out, confusion, or any other symptoms concerning for you. It was a pleasure taking care of you while you were in the hospital! Pending Studies at Discharge: No Stand-Alone Forms: My [facility], Smoking Cessation Medications and DC Order Prescriptions: New prednisone 20 mg tablet 40 mg PO DAILY 3 Days Qty: 6 0RF Continued (DME) Wheeled Walker Misc See Rx Instructions .ROUTE .MEDSUPPLY Qty: 1 0RF Rx Instructions: As directed venlafaxine 150 mg capsule,extended release 24hr 150 mg PO DAILY nystatin 100,000 unit/gram cream 1 applic topical BID PRN (Reason: Skin Irritation) metoprolol succinate 50 mg tablet extended release 24 hr 50 mg PO DAILY aspirin 81 mg tablet 81 mg PO DAILY dexlansoprazole 60 mg capsule,biphase delayed releas 60 mg PO DAILY gabapentin 300 mg capsule 300 mg PO DAILY hydroxychloroquine 200 mg tablet 200 mg PO DAILY hydroxyzine HCl 25 mg tablet 25 mg PO BID PRN (Reason: Anxiety) latanoprost 0.005 % drops 1 drp OPB HS mirabegron 50 mg tablet extended release 24 hr 50 mg PO DAILY levothyroxine 88 mcg tablet 88 mcg PO DAILYBB Discharge Orders: Discharge Order (Routine); Ordered 01/05/25 Ordered By: Myra Taylor Admission Data Admit Date/Time: 01/04/25 17:37 Attending Provider: Myra Reyes Admit Provider: Kyle Gamez Primary Care Provider: Carlos Albreto Canales Other Providers: Kyle Gamez Other Interventions: Discharge Summary Assessment (RN) Last Done: 01/05/25 13:45 Hospital Stay Data Consultations 01/04/25 16:35 ED Decision to Admit Stat Diagnostic Imagining Performed Chest X-Ray 01/04/25 14:45 Chest radiograph, one view History: Dyspnea. Comparison: January 27, 2019. Findings: Calcified atherosclerotic changes of the thoracic aorta. Probably fine left diaphragm and bilateral costophrenic angles. Difficulty appreciating significant interval change. Lung volume slightly decreased. Mild bronchovascular crowding. Pulmonary vasculature is within normal limits. Lungs are otherwise clear. Impression: Difficult appreciating significant interval change with suspected mild bibasilar subsegmental atelectasis and questionable small effusions versus costophrenic angle scarring. Consider lateral view. Electronically signed by Jg Tobar 01-04-2025 3:10 PM Pending Results Patient Have Any Pending Studies at Discharge: No Discharge Instructions Given to Patient (Per Discharging Provider) Marci, You were admitted to the hospital due to worsening shortness of breath and you are found to have parainfluenza. This is a respiratory virus. You were treated conservatively with IV steroids and breathing treatments. You have responded well to treatment and are medically stable to be discharged home. Upon discharge from the hospital: * Take prednisone (oral steroid) 40 mg x 3 days starting tomorrow 01/06. * Continue your other home medications as prescribed. * Follow-up with your PCP in 1-2 weeks. Please return to the hospital if you experience any of the following: New or worsening shortness of breath, difficulty breathing, chest pain, inability to tolerate oral intake, dizziness, passing out, confusion, or any other symptoms concerning for you. It was a pleasure taking care of you while you were in the hospital! Total Time Total Time Spent Total Time Spent (In Minutes): Greater than 30 minutes spent completing this discharge process including direct patient care, medication reconciliation, documentation, review of labs and images, and coordination of care. Coding Level of Care Code 86829 INP/OBS DISCH >30 MIN Diagnoses Parainfluenza B34.8 ILD (interstitial lung disease) J84.9 Overactive bladder N32.81 GERD (gastroesophageal reflux disease) K21.9
[2025-01-06] MEDS ORDERED: predniSONE 20 MG TAB PO SCH (09:00)
== END 2025-01-05 15:29 | disposition home or self-care (01) | DRG 866 ==
LOC: ED 12:52 → 2W 17:37 → SUATTDRO 17:37 → 2W 18:25